=== PATIENT | female | born 1940 | race Hispanic/Latino ===

== ENCOUNTER 2021-11-04 12:23 | Inpatient (IN) | payer MEDICARE ==
[~2021-11-04] VITALS: Ht 154.9 cm; Wt 84.1 kg
[2021-11-04 13:28] LABS: BASOPHILS # (AUTO) 0.1 (0.0-0.1); BASOPHILS % 0.7 % (0.0-1.0); EOSINOPHILS # (AUTO) 0.1 (0.0-0.4); EOSINOPHILS % 0.8 % (0.0-6.0); HEMATOCRIT 33.6 % (34.2-44.1); HEMOGLOBIN 10.6 g/dL (12.0-16.0); LYMPHOCYTES # (AUTO) 1.6 (1.0-3.2); LYMPHOCYTES % 15.4 % (18.0-39.1); MEAN CORPUSCULAR HEMOGLOBIN 28.5 pg (28-32); MEAN CORPUSCULAR HGB CONC 31.5 g/dL (31-35); MEAN CORPUSCULAR VOLUME 90.3 fL (81-99); MONOCYTES # (AUTO) 0.4 (0.2-0.8); MONOCYTES % 4.3 % (4.4-11.3); NEUTROPHILS % 77.9 % (38.7-80.0); PLATELET COUNT 296 x10e3/uL (140-360); RED BLOOD COUNT 3.72 x10e6/uL (3.6-5.1); RED CELL DISTRIBUTION WIDTH 15.8 % (11.7-14.4)
[2021-11-04 13:45] LABS: ALBUMIN/GLOBULIN RATIO 0.7 (0.8-2.0); ANION GAP 19.4 mmol/L (8-16); CALCIUM 8.8 mg/dL (8.4-10.2); CREATININE, SERUM 3.64 mg/dL (0.57-1.11); POTASSIUM 4.4 mmol/L (3.5-5.1)
[2021-11-04] MEDS ORDERED: DOCUSATE SODIUM 100 MG CAP PO PRN (14:15)
[2021-11-04] MEDS ORDERED: ONDANSETRON HCL INJ 2MG/ML 2ML 2 MG/ML VIAL IV PRN (14:15)
[2021-11-04 14:56] LABS: CHOL/HDL RATIO 7.1 (3.0-3.6)
[2021-11-04 15:16] LABS: THYROID STIMULATING HORMONE 1.522 uIU/mL (0.350-4.940)
[2021-11-04] MEDS: FAMOTIDINE 20 MG TAB PO SCH (17:38)
[2021-11-04] MEDS: CARVEDILOL 3.125 MG TAB PO SCH (17:55)
[2021-11-04 19:25] VITALS: BP 110/59
[2021-11-04 20:00] VITALS: BP 110/59
[2021-11-04 21:00] VITALS: BP 110/59
[2021-11-04] MEDS ORDERED: ATORVASTATIN 20 MG TAB PO SCH (21:00)
[2021-11-04] MEDS: HEPARIN SOD (PORCINE) 5,000 UNIT/ML VIAL SC SCH (22:00)
[2021-11-04] MEDS ORDERED: DEXTROSE 50% SYRINGE 50 ML IV PRN (22:00)
[2021-11-04] MEDS: INSULIN REGULAR, HUMAN 100 UNIT/1 ML SQ SCH (22:00)
[2021-11-05] VITALS (8 sets, daily range): BP systolic 113–137; BP diastolic 35–57
[2021-11-05] MEDS ORDERED: MAGNESIUM OXID400 MG PO (03:08)
[2021-11-05] MEDS ORDERED: CENTRUM ADULTS1 EACH PO (03:08)
[2021-11-05] MEDS ORDERED: METOPROLOL SUCC50 MG PO (03:08)
[2021-11-05] MEDS ORDERED: TERAZOSIN HCL5 MG PO (03:08)
[2021-11-05] MEDS ORDERED: CLONAZEPAM0.5 MG PO (03:08)
[2021-11-05] MEDS ORDERED: CLOPIDOGREL75 MG PO (03:08)
[2021-11-05] MEDS ORDERED: HYDRALAZINE HC100 MG PO (03:08)
[2021-11-05] MEDS ORDERED: AMIODARONE HCL100 MG PO (03:08)
[2021-11-05] MEDS ORDERED: ASPIRIN EC81 MG PO (03:08)
[2021-11-05] MEDS ORDERED: TYLENOL EXTRA500 MG PO (03:08)
[2021-11-05] MEDS ORDERED: NOVOLIN 70100 UNIT/3 SQ (03:08)
[2021-11-05] MEDS ORDERED: PRAVASTATIN SOD80 MG PO (03:08)
[2021-11-05] MEDS ORDERED: PREDNISONE5 MG PO (03:08)
[2021-11-05] MEDS ORDERED: NEURONTIN100 MG PO (03:08)
[2021-11-05] MEDS ORDERED: CARVEDILOL12.5 MG PO (03:08)
[2021-11-05] MEDS ORDERED: PENTOXIFYLLINE400 MG PO (03:08)
[2021-11-05] MEDS ORDERED: ACTOS15 MG PO (03:08)
[2021-11-05] MEDS ORDERED: VASOTEC5 MG PO (03:08)
[2021-11-05] MEDS ORDERED: ZETIA10 MG PO (03:08)
[2021-11-05] MEDS ORDERED: NOVOLOG MI100 UNIT/1 SC (03:08)
[2021-11-05] MEDS ORDERED: FUROSEMIDE40 MG PO (03:08)
[2021-11-05] MEDS ORDERED: clonazepam PO (03:12)
[2021-11-05 05:03] LABS: BASOPHILS # (AUTO) 0.1 (0.0-0.1); BASOPHILS % 0.8 % (0.0-1.0); EOSINOPHILS # (AUTO) 0.1 (0.0-0.4); EOSINOPHILS % 1.6 % (0.0-6.0); HEMATOCRIT 30.4 % (34.2-44.1); HEMOGLOBIN 9.6 g/dL (12.0-16.0); LYMPHOCYTES # (AUTO) 2.3 (1.0-3.2); LYMPHOCYTES % 25.3 % (18.0-39.1); MEAN CORPUSCULAR HEMOGLOBIN 29.1 pg (28-32); MEAN CORPUSCULAR HGB CONC 31.6 g/dL (31-35); MEAN CORPUSCULAR VOLUME 92.1 fL (81-99); MONOCYTES # (AUTO) 0.6 (0.2-0.8); MONOCYTES % 6.7 % (4.4-11.3); NEUTROPHILS # (AUTO) 5.9 (2.1-6.9); PLATELET COUNT 262 x10e3/uL (140-360); RED CELL DISTRIBUTION WIDTH 15.7 % (11.7-14.4)
[2021-11-05 05:41] LABS: ANION GAP 18.2 mmol/L (8-16); CALCIUM 8.3 mg/dL (8.4-10.2); CREATININE, SERUM 3.21 mg/dL (0.57-1.11); POTASSIUM 4.2 mmol/L (3.5-5.1)
[2021-11-05] MEDS ORDERED: SODIUM BICARBONATE 8.4% IV SCH (07:00)
[2021-11-05] MEDS ORDERED: SODIUM CHLORIDE 0.45% IV SCH (07:00)
[2021-11-05] MEDS ORDERED: SODIUM BICARBONATE 8.4% 50 ML in SODIUM CHLORIDE 0.45% 1,000 ML IV SCH (07:30)
[2021-11-05] MEDS: INSULIN ASPART 70/30 100 UNITS/ML VIAL SC SCH ×2 (07:30→17:00)
[2021-11-05] MEDS: INSULIN REGULAR, HUMAN 100 UNIT/1 ML SQ SCH ×4 (07:30→21:27)
[2021-11-05 08:34] LABS: COLOR,URINE YELLOW (YELLOW)
[2021-11-05 08:35] LABS: CLARITY,URINE CLOUDY (CLEAR); KETONES,URINE NEGATIVE (NEGATIVE); LEUKOCYTE ESTERASE ,URINE SMALL (NEGATIVE); NITRITE,URINE NEGATIVE (NEGATIVE); PROTEIN,URINE DIPSTICK TRACE (NEGATIVE); URINE UROBILINOGEN 0.2 mg/dL (0.2 - 1)
[2021-11-05 08:44] LABS: BACTERIA,URINE MANY /HPF; EPITHELIAL CELLS,URINE FEW /LPF; RBC,URINE 21-50 /HPF (0-5); WBC,URINE (MAN) >50 /HPF (0-5); YEAST,URINE MODERATE
[2021-11-05] MEDS: HEPARIN SOD (PORCINE) 5,000 UNIT/ML VIAL SC SCH ×2 (09:00→21:00)
[2021-11-05] MEDS: AMIODARONE HCL 200 MG TAB PO SCH (09:23)
[2021-11-05] MEDS: FAMOTIDINE 20 MG TAB PO SCH ×2 (09:23→16:40)
[2021-11-05] MEDS: ASPIRIN 81 MG ENTERIC COATED PO SCH (09:23)
[2021-11-05] MEDS: GABAPENTIN 100 MG CAP PO SCH ×3 (09:25→21:27)
[2021-11-05] MEDS: CLOPIDOGREL BISULFATE 75 MG TAB PO SCH (09:25)
[2021-11-05] MEDS: CARVEDILOL 3.125 MG TAB PO SCH ×2 (09:26→17:00)
[2021-11-05] MEDS ORDERED: SODIUM BICARBONATE 8.4% 75 ML in SODIUM CHLORIDE 0.45% 1,000 ML IV SCH (11:52)
[2021-11-05] MEDS ORDERED: LIDOCAINE HCL 1% LOCAL INJ 20 ML VIAL ONE (15:45)
[2021-11-05] MEDS: BALSAM PERU/CASTOR OIL 60 GM OINT...G. TP SCH (16:30)
[2021-11-05] MEDS: COLLAGENASE 5 GM TUBE TOP SCH (16:30)
[2021-11-05] MEDS: SODIUM BICARBONATE 8.4% 75 ML in SODIUM CHLORIDE 0.45% 1,000 ML IV SCH (16:40)
[2021-11-05] MEDS: NYSTATIN 15 GM POWDER UD BTL TOP SCH (16:41)
[2021-11-05] MEDS ORDERED: ASPIRIN 81 MG ENTERIC COATED PO SCH (21:00)
[2021-11-05] MEDS: CLONAZEPAM 0.5 MG TAB PO SCH ×2 (21:00→21:27)
[2021-11-05] MEDS: SIMVASTATIN 40 MG TAB PO SCH (21:27)
[2021-11-05] MEDS: EZETIMIBE 10 MG TAB PO SCH (21:27)
[2021-11-06] VITALS (9 sets, daily range): BP systolic 96–142; BP diastolic 36–60
[2021-11-06] MEDS: SODIUM BICARBONATE 8.4% 75 ML in SODIUM CHLORIDE 0.45% 1,000 ML IV SCH ×2 (04:08→10:39)
[2021-11-06] MEDS ORDERED: FUROSEMIDE INJ 10 MG/ML 2 ML VIAL IV ONE (05:45)
[2021-11-06 06:05] LABS: BASOPHILS # (AUTO) 0.1 (0.0-0.1); BASOPHILS % 0.7 % (0.0-1.0); EOSINOPHILS # (AUTO) 0.2 (0.0-0.4); EOSINOPHILS % 2.2 % (0.0-6.0); HEMATOCRIT 28.5 % (34.2-44.1); HEMOGLOBIN 8.7 g/dL (12.0-16.0); LYMPHOCYTES # (AUTO) 2.5 (1.0-3.2); LYMPHOCYTES % 29.7 % (18.0-39.1); MEAN CORPUSCULAR HEMOGLOBIN 28.3 pg (28-32); MEAN CORPUSCULAR HGB CONC 30.5 g/dL (31-35); MEAN CORPUSCULAR VOLUME 92.8 fL (81-99); MONOCYTES # (AUTO) 0.5 (0.2-0.8); MONOCYTES % 6.1 % (4.4-11.3); NEUTROPHILS # (AUTO) 5.1 (2.1-6.9); NEUTROPHILS % 60.8 % (38.7-80.0); PLATELET COUNT 252 x10e3/uL (140-360); RED BLOOD COUNT 3.07 x10e6/uL (3.6-5.1); RED CELL DISTRIBUTION WIDTH 15.8 % (11.7-14.4)
[2021-11-06 06:16] LABS: INR 0.98; PROTHROMBIN TIME 13.9 seconds (11.9-14.5)
[2021-11-06 06:36] LABS: ALBUMIN 2.5 g/dL (3.5-5.0); ALBUMIN/GLOBULIN RATIO 0.8 (0.8-2.0); ANION GAP 15.2 mmol/L (8-16); CALCIUM 7.8 mg/dL (8.4-10.2); CREATININE, SERUM 3.37 mg/dL (0.57-1.11); MAGNESIUM 2.2 MG/DL (1.3-2.1); PHOSPHORUS 3.5 MG/DL (2.3-4.7); POTASSIUM 4.2 mmol/L (3.5-5.1)
[2021-11-06] MEDS: INSULIN REGULAR, HUMAN 100 UNIT/1 ML SQ SCH ×3 (07:30→16:30)
[2021-11-06] MEDS: INSULIN ASPART 70/30 100 UNITS/ML VIAL SC SCH ×2 (07:30→17:00)
[2021-11-06] MEDS: CEFTRIAXONE 1 GM in SODIUM CHLORIDE 0.9% 50ML 50 ML IV SCH (08:26)
[2021-11-06] MEDS: COLLAGENASE 5 GM TUBE TOP SCH (09:00)
[2021-11-06] MEDS: BALSAM PERU/CASTOR OIL 60 GM OINT...G. TP SCH (09:00)
[2021-11-06] MEDS: NYSTATIN 15 GM POWDER UD BTL TOP SCH ×2 (09:00→17:00)
[2021-11-06 09:22] LABS: BASOPHILS # (AUTO) 0.1 (0.0-0.1); BASOPHILS % 1.1 % (0.0-1.0); EOSINOPHILS # (AUTO) 0.2 (0.0-0.4); EOSINOPHILS % 2.1 % (0.0-6.0); HEMATOCRIT 30.1 % (34.2-44.1); HEMOGLOBIN 9.2 g/dL (12.0-16.0); LYMPHOCYTES # (AUTO) 2.5 (1.0-3.2); LYMPHOCYTES % 26.3 % (18.0-39.1); MEAN CORPUSCULAR HEMOGLOBIN 28.6 pg (28-32); MEAN CORPUSCULAR HGB CONC 30.6 g/dL (31-35); MEAN CORPUSCULAR VOLUME 93.5 fL (81-99); MONOCYTES # (AUTO) 0.6 (0.2-0.8); MONOCYTES % 6.5 % (4.4-11.3); NEUTROPHILS % 63.6 % (38.7-80.0); PLATELET COUNT 229 x10e3/uL (140-360); RED BLOOD COUNT 3.22 x10e6/uL (3.6-5.1); RED CELL DISTRIBUTION WIDTH 15.7 % (11.7-14.4)
[2021-11-06 09:44] LABS: ANION GAP 15.4 mmol/L (8-16); CALCIUM 7.8 mg/dL (8.4-10.2); CREATININE, SERUM 3.2 mg/dL (0.57-1.11); POTASSIUM 4.4 mmol/L (3.5-5.1)
[2021-11-06] MEDS ORDERED: POTASSIUM PHOSPHATE 15 MM in SODIUM CHLORIDE 0.9% 250ML 250 ML IV SCH (11:00)
[2021-11-06] MEDS ORDERED: ONDANSETRON HCL 4 MG ORAL DISINTEGRATING TAB PO PRN (11:30)
[2021-11-06] MEDS: AMIODARONE HCL 200 MG TAB PO SCH (14:30)
[2021-11-06] MEDS: CARVEDILOL 3.125 MG TAB PO SCH ×2 (14:30→17:00)
[2021-11-06] MEDS: GABAPENTIN 100 MG CAP PO SCH ×3 (14:30→20:50)
[2021-11-06] MEDS: ASPIRIN 81 MG ENTERIC COATED PO SCH (14:30)
[2021-11-06] MEDS: FAMOTIDINE 20 MG TAB PO SCH ×2 (14:30→16:30)
[2021-11-06] MEDS: CLONAZEPAM 0.5 MG TAB PO SCH (20:50)
[2021-11-06] MEDS: SIMVASTATIN 40 MG TAB PO SCH (20:50)
[2021-11-06] MEDS: EZETIMIBE 10 MG TAB PO SCH (20:50)
[2021-11-07] VITALS (8 sets, daily range): BP systolic 112–157; BP diastolic 42–54
[2021-11-07] MEDS: SODIUM BICARBONATE 8.4% 75 ML in SODIUM CHLORIDE 0.45% 1,000 ML IV SCH ×3 (00:59→22:30)
[2021-11-07 06:13] LABS: ANION GAP 15.8 mmol/L (8-16); CALCIUM 7.4 mg/dL (8.4-10.2); CREATININE, SERUM 2.53 mg/dL (0.57-1.11); MAGNESIUM 2.1 MG/DL (1.3-2.1); PHOSPHORUS 3.2 MG/DL (2.3-4.7); POTASSIUM 3.8 mmol/L (3.5-5.1)
[2021-11-07] MEDS: INSULIN ASPART 70/30 100 UNITS/ML VIAL SC SCH ×2 (07:30→16:41)
[2021-11-07] MEDS: FAMOTIDINE 20 MG TAB PO SCH ×2 (07:30→16:30)
[2021-11-07] MEDS: INSULIN REGULAR, HUMAN 100 UNIT/1 ML SQ SCH ×5 (07:30→21:20)
[2021-11-07] MEDS: ASPIRIN 81 MG ENTERIC COATED PO SCH (09:00)
[2021-11-07] MEDS: CEFTRIAXONE 1 GM in SODIUM CHLORIDE 0.9% 50ML 50 ML IV SCH (09:00)
[2021-11-07] MEDS: GABAPENTIN 100 MG CAP PO SCH ×3 (09:00→21:20)
[2021-11-07] MEDS: AMIODARONE HCL 200 MG TAB PO SCH (09:00)
[2021-11-07] MEDS: BALSAM PERU/CASTOR OIL 60 GM OINT...G. TP SCH (09:00)
[2021-11-07] MEDS: NYSTATIN 15 GM POWDER UD BTL TOP SCH ×2 (09:00→16:43)
[2021-11-07] MEDS: COLLAGENASE 5 GM TUBE TOP SCH (09:00)
[2021-11-07] MEDS: CARVEDILOL 3.125 MG TAB PO SCH ×2 (09:00→16:43)
[2021-11-07] MEDS: CLONAZEPAM 0.5 MG TAB PO SCH (21:20)
[2021-11-07] MEDS: SIMVASTATIN 40 MG TAB PO SCH (21:20)
[2021-11-07] MEDS: EZETIMIBE 10 MG TAB PO SCH (21:20)
[2021-11-07] MEDS: HEPARIN SOD (PORCINE) 5,000 UNIT/ML VIAL SC SCH (21:20)
[2021-11-08] VITALS (9 sets, daily range): BP systolic 131–159; BP diastolic 43–62
[2021-11-08] MEDS: FAMOTIDINE 20 MG TAB PO SCH ×2 (07:30→16:30)
[2021-11-08] MEDS: INSULIN ASPART 70/30 100 UNITS/ML VIAL SC SCH ×2 (07:30→17:32)
[2021-11-08] MEDS: INSULIN REGULAR, HUMAN 100 UNIT/1 ML SQ SCH ×4 (07:30→20:50)
[2021-11-08] MEDS: ACETAMINOPHEN 325 MG TAB PO PRN (08:53)
[2021-11-08] MEDS: CLOPIDOGREL BISULFATE 75 MG TAB PO SCH (09:00)
[2021-11-08] MEDS: ASPIRIN 81 MG ENTERIC COATED PO SCH (09:00)
[2021-11-08] MEDS: COLLAGENASE 5 GM TUBE TOP SCH (09:00)
[2021-11-08] MEDS: HEPARIN SOD (PORCINE) 5,000 UNIT/ML VIAL SC SCH ×2 (09:00→20:50)
[2021-11-08] MEDS: AMIODARONE HCL 200 MG TAB PO SCH (09:00)
[2021-11-08] MEDS: CEFTRIAXONE 1 GM in SODIUM CHLORIDE 0.9% 50ML 50 ML IV SCH (09:00)
[2021-11-08] MEDS: BALSAM PERU/CASTOR OIL 60 GM OINT...G. TP SCH (09:00)
[2021-11-08] MEDS: CARVEDILOL 3.125 MG TAB PO SCH ×2 (09:00→17:00)
[2021-11-08] MEDS: NYSTATIN 15 GM POWDER UD BTL TOP SCH ×2 (09:00→17:00)
[2021-11-08] MEDS: GABAPENTIN 100 MG CAP PO SCH ×3 (09:00→20:50)
[2021-11-08] MEDS: PIPERACILLIN/TAZOBACTAM 2.25 GM in SODIUM CHLORIDE 0.9% 50ML 50 ML IV SCH ×2 (12:00→17:29)
[2021-11-08 12:02] LABS: ANION GAP 13.6 mmol/L (8-16); CREATININE, SERUM 1.94 mg/dL (0.57-1.11); POTASSIUM 3.6 mmol/L (3.5-5.1)
[2021-11-08 12:05] LABS: CALCIUM 6.8 mg/dL (8.4-10.2)
[2021-11-08] MEDS: SODIUM BICARBONATE 8.4% 75 ML in SODIUM CHLORIDE 0.45% 1,000 ML IV SCH (20:50)
[2021-11-08] MEDS: SIMVASTATIN 40 MG TAB PO SCH (20:50)
[2021-11-08] MEDS: EZETIMIBE 10 MG TAB PO SCH (20:50)
[2021-11-08] MEDS: CLONAZEPAM 0.5 MG TAB PO SCH (20:50)
[2021-11-09] VITALS (7 sets, daily range): BP systolic 130–155; BP diastolic 49–68
[2021-11-09] MEDS: PIPERACILLIN/TAZOBACTAM 2.25 GM in SODIUM CHLORIDE 0.9% 50ML 50 ML IV SCH ×4 (00:41→17:00)
[2021-11-09] MEDS: SODIUM BICARBONATE 8.4% 75 ML in SODIUM CHLORIDE 0.45% 1,000 ML IV SCH (03:33)
[2021-11-09] MEDS: ACETAMINOPHEN 325 MG TAB PO PRN ×3 (03:33→19:48)
[2021-11-09 07:21] LABS: ANION GAP 12.4 mmol/L (8-16); CREATININE, SERUM 1.7 mg/dL (0.57-1.11); POTASSIUM 3.4 mmol/L (3.5-5.1)
[2021-11-09] MEDS: INSULIN REGULAR, HUMAN 100 UNIT/1 ML SQ SCH ×4 (07:30→20:14)
[2021-11-09 07:32] LABS: CALCIUM 6.7 mg/dL (8.4-10.2)
[2021-11-09] MEDS ORDERED: CALCIUM GLUC 1 G/50 ML NACL 50 ML IV ONE ×3 (08:30→10:30)
[2021-11-09] MEDS: FAMOTIDINE 20 MG TAB PO SCH ×2 (09:06→16:59)
[2021-11-09] MEDS: CLOPIDOGREL BISULFATE 75 MG TAB PO SCH (09:07)
[2021-11-09] MEDS: AMIODARONE HCL 200 MG TAB PO SCH (09:07)
[2021-11-09] MEDS: CARVEDILOL 3.125 MG TAB PO SCH ×2 (09:07→16:59)
[2021-11-09] MEDS: ASPIRIN 81 MG ENTERIC COATED PO SCH (09:07)
[2021-11-09] MEDS: GABAPENTIN 100 MG CAP PO SCH ×3 (09:07→20:30)
[2021-11-09] MEDS: NYSTATIN 15 GM POWDER UD BTL TOP SCH ×2 (09:08→17:00)
[2021-11-09] MEDS: BALSAM PERU/CASTOR OIL 60 GM OINT...G. TP SCH (09:08)
[2021-11-09] MEDS: COLLAGENASE 5 GM TUBE TOP SCH (09:08)
[2021-11-09] MEDS ORDERED: SODIUM CHLORIDE 0.9% 250ML 250 ML ONE (09:31)
[2021-11-09] MEDS ORDERED: POTASSIUM CHLORIDE 20 MEQ TAB CR PO ONE (09:45)
[2021-11-09] MEDS: HEPARIN SOD (PORCINE) 5,000 UNIT/ML VIAL SC SCH ×2 (09:51→20:31)
[2021-11-09] MEDS: INSULIN ASPART 70/30 100 UNITS/ML VIAL SC SCH ×2 (09:51→19:32)
[2021-11-09] MEDS: SIMVASTATIN 40 MG TAB PO SCH (20:30)
[2021-11-09] MEDS: EZETIMIBE 10 MG TAB PO SCH (20:30)
[2021-11-09] MEDS: CLONAZEPAM 0.5 MG TAB PO SCH (20:30)
[2021-11-10] VITALS (9 sets, daily range): BP systolic 113–176; BP diastolic 44–68
[2021-11-10] MEDS: PIPERACILLIN/TAZOBACTAM 2.25 GM in SODIUM CHLORIDE 0.9% 50ML 50 ML IV SCH ×6 (05:45→23:45)
[2021-11-10 06:44] LABS: ALBUMIN 2.2 g/dL (3.5-5.0); ALBUMIN/GLOBULIN RATIO 0.7 (0.8-2.0); CALCIUM 7.5 mg/dL (8.4-10.2); CREATININE, SERUM 1.83 mg/dL (0.57-1.11); MAGNESIUM 1.5 MG/DL (1.3-2.1); PHOSPHORUS 2.3 MG/DL (2.3-4.7)
[2021-11-10] MEDS: INSULIN REGULAR, HUMAN 100 UNIT/1 ML SQ SCH ×4 (07:30→21:38)
[2021-11-10] MEDS: FAMOTIDINE 20 MG TAB PO SCH ×2 (08:31→16:44)
[2021-11-10] MEDS: INSULIN ASPART 70/30 100 UNITS/ML VIAL SC SCH ×2 (08:32→16:26)
[2021-11-10] MEDS: AMIODARONE HCL 200 MG TAB PO SCH (08:35)
[2021-11-10] MEDS: ASPIRIN 81 MG ENTERIC COATED PO SCH (08:35)
[2021-11-10] MEDS: CLOPIDOGREL BISULFATE 75 MG TAB PO SCH (08:36)
[2021-11-10] MEDS: CARVEDILOL 3.125 MG TAB PO SCH ×2 (08:36→16:45)
[2021-11-10] MEDS: GABAPENTIN 100 MG CAP PO SCH ×3 (08:36→20:40)
[2021-11-10] MEDS: COLLAGENASE 5 GM TUBE TOP SCH (08:39)
[2021-11-10] MEDS: NYSTATIN 15 GM POWDER UD BTL TOP SCH ×2 (08:39→16:45)
[2021-11-10] MEDS: HEPARIN SOD (PORCINE) 5,000 UNIT/ML VIAL SC SCH ×2 (08:39→20:40)
[2021-11-10] MEDS: BALSAM PERU/CASTOR OIL 60 GM OINT...G. TP SCH (08:39)
[2021-11-10] MEDS: EZETIMIBE 10 MG TAB PO SCH (20:40)
[2021-11-10] MEDS: CLONAZEPAM 0.5 MG TAB PO SCH (20:40)
[2021-11-10] MEDS: SIMVASTATIN 40 MG TAB PO SCH (20:40)
[2021-11-11 01:46] VITALS: BP 176/51
[2021-11-11 03:41] VITALS: BP 149/75
[2021-11-11 04:57] LABS: CALCIUM IONIZED 1.1 mmol/L (1.09-1.30)
[2021-11-11 05:00] LABS: BASOPHILS # (AUTO) 0.1 (0.0-0.1); BASOPHILS % 0.8 % (0.0-1.0); EOSINOPHILS # (AUTO) 0.4 (0.0-0.4); EOSINOPHILS % 4.9 % (0.0-6.0); HEMATOCRIT 28.2 % (34.2-44.1); HEMOGLOBIN 8.3 g/dL (12.0-16.0); LYMPHOCYTES # (AUTO) 2.4 (1.0-3.2); LYMPHOCYTES % 32.4 % (18.0-39.1); MEAN CORPUSCULAR HEMOGLOBIN 28.2 pg (28-32); MEAN CORPUSCULAR HGB CONC 29.4 g/dL (31-35); MEAN CORPUSCULAR VOLUME 95.9 fL (81-99); MONOCYTES # (AUTO) 0.5 (0.2-0.8); MONOCYTES % 6.9 % (4.4-11.3); NEUTROPHILS % 54.6 % (38.7-80.0); PLATELET COUNT 198 x10e3/uL (140-360); RED BLOOD COUNT 2.94 x10e6/uL (3.6-5.1); RED CELL DISTRIBUTION WIDTH 15.3 % (11.7-14.4)
[2021-11-11 05:16] LABS: ALBUMIN 2.3 g/dL (3.5-5.0); ALBUMIN/GLOBULIN RATIO 0.7 (0.8-2.0); ANION GAP 13.3 mmol/L (8-16); CALCIUM 7.6 mg/dL (8.4-10.2); CREATININE, SERUM 1.84 mg/dL (0.57-1.11); POTASSIUM 4.3 mmol/L (3.5-5.1)
[2021-11-11] MEDS: PIPERACILLIN/TAZOBACTAM 2.25 GM in SODIUM CHLORIDE 0.9% 50ML 50 ML IV SCH ×2 (05:49→12:00)
[2021-11-11] MEDS: INSULIN REGULAR, HUMAN 100 UNIT/1 ML SQ SCH ×2 (07:30→11:30)
[2021-11-11] MEDS: INSULIN ASPART 70/30 100 UNITS/ML VIAL SC SCH (07:30)
[2021-11-11] MEDS: FAMOTIDINE 20 MG TAB PO SCH (07:30)
[2021-11-11 08:00] VITALS: BP 149/75
[2021-11-11 08:15] VITALS: BP 173/62
[2021-11-11] MEDS: NYSTATIN 15 GM POWDER UD BTL TOP SCH (09:00)
[2021-11-11] MEDS: HEPARIN SOD (PORCINE) 5,000 UNIT/ML VIAL SC SCH (09:00)
[2021-11-11] MEDS: CARVEDILOL 3.125 MG TAB PO SCH (09:00)
[2021-11-11] MEDS: COLLAGENASE 5 GM TUBE TOP SCH (09:00)
[2021-11-11] MEDS: ASPIRIN 81 MG ENTERIC COATED PO SCH (09:00)
[2021-11-11] MEDS: BALSAM PERU/CASTOR OIL 60 GM OINT...G. TP SCH (09:00)
[2021-11-11] MEDS: AMIODARONE HCL 200 MG TAB PO SCH (09:00)
[2021-11-11] MEDS: CLOPIDOGREL BISULFATE 75 MG TAB PO SCH (09:00)
[2021-11-11] MEDS: GABAPENTIN 100 MG CAP PO SCH ×2 (09:00→15:00)
[2021-11-11] MEDS ORDERED: CALCIUM GLUCONATE 10% INJ 9.3 MEQ in SODIUM CHLORIDE 0.9% 100 ML 100 ML IV ONE (09:30)
[2021-11-11 11:29] VITALS: BP 152/56
[2021-11-12] MEDS ORDERED: CHOLECALCIFEROL 1,000 UNIT TAB PO SCH (09:00)
== END 2021-11-11 15:27 | disposition home or self-care (01) | DRG 291 ==
LOC: ER 12:50 → ERHOLD 14:21 → MED/SURG2 18:28
PROVIDERS: ADMIT Internal Medicine; ATTEND Internal Medicine
PROC: 02HV33Z Insertion of Infusion Device into Superior Vena Cava, Percutaneous Approach (ICD-10-PCS; principal; 2021-11-06)
DX: I13.0 Hypertensive heart and chronic kidney disease with heart failure and stage 1 through stage 4 chronic kidney disease, or unspecified chronic kidney disease (principal); I50.33 Acute on chronic diastolic (congestive) heart failure; N18.4 Chronic kidney disease, stage 4 (severe); N17.9 Acute kidney failure, unspecified; N39.0 Urinary tract infection, site not specified; E87.2 Acidosis; N25.81 Secondary hyperparathyroidism of renal origin; N12 Tubulo-interstitial nephritis, not specified as acute or chronic; B96.5 Pseudomonas (aeruginosa) (mallei) (pseudomallei) as the cause of diseases classified elsewhere; E83.51 Hypocalcemia; E87.6 Hypokalemia
CPT/HCPCS: 36415; 36556; 71045; 76604; 76770; 76937; 77001; 80048; 80053; 80061; 81001; 82570; 82948; 83036; 83735; 83880; 83970; 84100; 84300; 84443; 84484; 85025; 85610; 87086; 87186; 93005; 93306; 94799; 96372; 97139; 99251; 99284; J0610; J0696; J1644; J1815; J1817; J1940; J2001; J2543; J7050; U0002